=== PATIENT | female | born 1990 | race Caucasian/White ===

== ENCOUNTER 2017-04-10 05:51 | Day surgery (SDC) | payer OTHER ==
[~2017-04-10] VITALS: Ht 160 cm
--- NOTE | 2017-04-15 11:37 | OR ---
ADMIT: 04/10/2017 RM/LOC: [facility] MR#: [id number] [address] [id number] JIMENEZ SALAZAR [address] [place] [address] Operative/Delivery Room Report SEX: F AGE: 27 : 1990 Corrected: 04/11/201726 [facility] SURGERY DATE: 04/10/2017 SURGEON: Clifton Robb MD PREOPERATIVE DIAGNOSIS: Chronic cholecystitis. POSTOPERATIVE DIAGNOSIS: Chronic cholecystitis. PROCEDURE: Laparoscopic cholecystectomy. ASSISTING: PREMA Tesfaye, whose assistance was necessary for laparoscopic visualization and tissue retraction. ANESTHESIA: General endotracheal. ESTIMATED BLOOD LOSS: 10 mL. DESCRIPTION OF PROCEDURE: The patient was taken to the operating room and placed supine on the operating room table. General anesthesia was established. The abdomen was prepped and draped in the standard surgical fashion. A 5 mm infraumbilical incision was made in the skin. The fascia was grasped with a Rene clamp, and a Veress needle was advanced into the peritoneal cavity. Carbon dioxide was used to insufflate the abdomen to 15 mmHg pressure. The Veress needle was withdrawn, and a 5 mm trocar was placed. Next, an 11 mm subxiphoid port and 2 right lateral 5 mm ports were placed under visualization. The gallbladder was retracted cephalad. Adhesions at close triangle were taken down with cautery to expose the cystic duct. The cystic duct was skeletonized and the view of safety was obtained. The cystic duct was doubly clipped distally, singly clipped proximally, and divided. The cystic artery was skeletonized, doubly clipped proximally, singly clipped distally, ADMIT: 04/10/2017 RM/LOC: [facility] MR#: [id number] [place] [address] [place], [place] [id number] JIMENEZ SALAZAR [address] [place] [address] Operative/Delivery Room Report SEX: F AGE: 27 : 1990 and divided. The gallbladder was excised from the gallbladder fossa with Bovie cautery. It was placed in an EndoCatch bag and removed through the subxiphoid port site. The right upper quadrant was irrigated. There was no evidence of bleeding. No evidence of bile leak, and the clips remained intact on the cystic duct and artery. The ports were removed under visualization without evidence of bleeding. The abdomen was allowed to deflate. Skin edges were approximated with 4-0 Monocryl in a subcuticular fashion and Dermabond. Local anesthetic was injected at the incisions. Sponge, needle, and instrument counts were correct at the end of the case. The patient tolerated the procedure well, and transferred to the recovery area in stable condition. Clifton Robb MD/ kareem JOB #: [id number] CC: Clifton Robb, Attending Physician Eliecer Cedeno, Family Physician Corrected: 04/11/2017 0626 njv
== END 2017-04-10 13:55 | disposition home or self-care (01) ==
LOC: SSS 05:51
PROC: 0FT44ZZ Resection of Gallbladder, Percutaneous Endoscopic Approach (ICD-10-PCS; principal; 2017-04-10)
DX: K81.1 Chronic cholecystitis (principal); K82.8 Other specified diseases of gallbladder; K21.9 Gastro-esophageal reflux disease without esophagitis; Z98.890 Other specified postprocedural states